=== PATIENT | female | born 1960 | race Caucasian/White ===

== ENCOUNTER → 2017-08-24 13:22 | Outpatient (CLI) | payer OTHER, MEDICARE, SELFPAY ==
[2017-08-24 13:56] LABS: Absolute Lymphocyte Count 3.79 X10^3/ul (0.83-4.51); Absolute Neutrophil Count 2.9 X10^3/uL (2.0-7.7); Basophil# 0.03 X10^3/uL; Basophil% 0.4 % (0-1); Eosinophil# 0.39 X10^3/uL; Eosinophils% 4.9 % (0-5); Hemoglobin 10.7 g/dl (12.0-15.0); Lymphocyte # 3.79 X10^3/ul (4.0); Lymphocyte % 47.8 % (19-41); Mean Corp Hgb Conc 32.4 g/gl (32-36); Mean Corpuscular Hgb 32.8 pg (27.0-32.0); Mean Corpuscular Volume 101.2 fL (81-99); Mean Platelet Vol. 9.9 fl (6.2-12.0); Monocyte# 0.82 X10^3/uL; Monocyte% 10.3 % (0-10); Neutrophil # 2.89 X10^3/uL (2.7-7.7); Neutrophil % 36.5 % (47-70); Platelet Count 284 K/mm3 (150-450); RBC Distribution Width CV 12.9 % (11.6-14.6); RBC Distribution Width SD 47.5 fl (35.1-43.9); Red Blood Count 3.26 M/mm3 (4.2-5.4); White Blood Count 7.9 K/mm3 (4.4-11.0)
[2017-08-24 13:57] LABS: POSITIVE COUNT NO; POSITIVE DIFFERENTIAL NO; POSITIVE MORPHOLOGY NO
[2017-08-24 14:26] LABS: ALB/GLOB Ratio 0.8 RATIO (0.9-2.4); AST(SGOT) 22 U/L (15-37); Alanine Aminotransfer ALT/SGPT 21 U/L (13-56); Albumin, Serum 3.4 g/dL (3.2-5.0); Alkaline Phosphatase 47 U/L (45-117); Anion Gap 9 (5-15); BUN 23 mg/dL (7-18); BUN/Creat Ratio 17.4 RATIO (10-20); Calcium,Total 9.6 mg/dL (8.5-10.1); Chloride 103 mmol/L (98-107); Creatinine, Serum 1.32 mg/dL (0.55-1.02); EST Glomerular Filtration Rate 44 mL/min (>60); Est Glom Filt Rate - Afr Amer 53 mL/min (>60); Globulin 4.1 g/dL (2.2-4.2); Glucose 94 mg/dL (70-110); Phosphorus 3.1 mg/dL (2.5-4.9); Potassium 3.5 mmol/L (3.5-5.1); Protein, Total 7.5 g/dL (6.4-8.2); Sodium Level 140 mmol/L (136-145)
[2017-08-28 07:53] LABS: Tacrolimus (FK506) 8.4 ng/mL (2.0-20.0)
== END ==
DX: D89.9 Disorder involving the immune mechanism, unspecified (principal); Z94.0 Kidney transplant status
CPT/HCPCS: 36591; 80053; 80197; 84100; 85025; 86140; A4216

== ENCOUNTER → 2017-10-16 12:54 | Outpatient (CLI) | payer OTHER, MEDICARE, SELFPAY ==
[2017-10-16 13:31] LABS: Erythrocyte Sedimentation Rate 30 mm/hr (0-30)
[2017-10-16 13:32] LABS: Absolute Lymphocyte Count 4.44 X10^3/ul (0.83-4.51); Absolute Neutrophil Count 3.4 X10^3/uL (2.0-7.7); Basophil# 0.08 X10^3/uL; Basophil% 0.9 % (0-1); Eosinophil# 0.42 X10^3/uL; Eosinophils% 4.6 % (0-5); Hematocrit 32.9 % (37-47); Hemoglobin 10.8 g/dl (12.0-15.0); Lymphocyte # 4.44 X10^3/ul (4.0); Lymphocyte % 48.1 % (19-41); Mean Corp Hgb Conc 32.8 g/gl (32-36); Mean Corpuscular Hgb 33.3 pg (27.0-32.0); Mean Corpuscular Volume 101.5 fL (81-99); Mean Platelet Vol. 10.2 fl (6.2-12.0); Monocyte# 0.93 X10^3/uL; Monocyte% 10.1 % (0-10); Neutrophil # 3.35 X10^3/uL (2.7-7.7); Neutrophil % 36.2 % (47-70); Platelet Count 302 K/mm3 (150-450); RBC Distribution Width CV 12.5 % (11.6-14.6); RBC Distribution Width SD 44.7 fl (35.1-43.9); Red Blood Count 3.24 M/mm3 (4.2-5.4); White Blood Count 9.2 K/mm3 (4.4-11.0)
[2017-10-16 13:34] LABS: POSITIVE COUNT NO; POSITIVE DIFFERENTIAL NO; POSITIVE MORPHOLOGY NO
[2017-10-16 13:53] LABS: ALB/GLOB Ratio 0.8 RATIO (0.9-2.4); AST(SGOT) 22 U/L (15-37); Alanine Aminotransfer ALT/SGPT 19 U/L (13-56); Albumin, Serum 3.2 g/dL (3.2-5.0); Alkaline Phosphatase 50 U/L (45-117); Anion Gap 9 (5-15); BUN 19 mg/dL (7-18); BUN/Creat Ratio 15.8 RATIO (10-20); CRP < 2.90 mg/L (0.0-3.0); Calcium,Total 8.8 mg/dL (8.5-10.1); Chloride 103 mmol/L (98-107); EST Glomerular Filtration Rate 49 mL/min (>60); Est Glom Filt Rate - Afr Amer 59 mL/min (>60); Globulin 4.2 g/dL (2.2-4.2); Glucose 109 mg/dL (74-106); Phosphorus 2.3 mg/dL (2.5-4.9); Potassium 3.3 mmol/L (3.5-5.1); Protein, Total 7.4 g/dL (6.4-8.2); Sodium Level 141 mmol/L (136-145)
== END ==
DX: Z94.0 Kidney transplant status (principal); D89.9 Disorder involving the immune mechanism, unspecified
CPT/HCPCS: 36591; 80053; 80197; 84100; 85025; 85652; 86140; A4216

== ENCOUNTER → 2017-11-27 15:53 | Outpatient (CLI) | payer OTHER, MEDICARE, SELFPAY ==
[2017-11-27 16:19] LABS: Absolute Lymphocyte Count 3.91 X10^3/ul (0.83-4.51); Absolute Neutrophil Count 3.4 X10^3/uL (2.0-7.7); Basophil# 0.03 X10^3/uL; Basophil% 0.4 % (0-1); Eosinophil# 0.35 X10^3/uL; Eosinophils% 4.2 % (0-5); Hematocrit 32.3 % (37-47); Hemoglobin 10.7 g/dl (12.0-15.0); Lymphocyte # 3.91 X10^3/ul (4.0); Lymphocyte % 46.7 % (19-41); Mean Corp Hgb Conc 33.1 g/gl (32-36); Mean Corpuscular Hgb 32.9 pg (27.0-32.0); Mean Corpuscular Volume 99.4 fL (81-99); Mean Platelet Vol. 9.9 fl (6.2-12.0); Monocyte# 0.63 X10^3/uL; Monocyte% 7.5 % (0-10); Neutrophil # 3.44 X10^3/uL (2.7-7.7); Platelet Count 280 K/mm3 (150-450); RBC Distribution Width CV 12.9 % (11.6-14.6); RBC Distribution Width SD 47.1 fl (35.1-43.9); Red Blood Count 3.25 M/mm3 (4.2-5.4); White Blood Count 8.4 K/mm3 (4.4-11.0)
[2017-11-27 16:20] LABS: POSITIVE COUNT NO; POSITIVE DIFFERENTIAL NO; POSITIVE MORPHOLOGY NO
[2017-11-27 16:23] LABS: Erythrocyte Sedimentation Rate 25 mm/hr (0-30)
[2017-11-27 16:27] LABS: ALB/GLOB Ratio 0.8 RATIO (0.9-2.4); AST(SGOT) 21 U/L (15-37); Alanine Aminotransfer ALT/SGPT 16 U/L (13-56); Albumin, Serum 3.3 g/dL (3.2-5.0); Alkaline Phosphatase 42 U/L (45-117); Anion Gap 8 (5-15); BUN 22 mg/dL (7-18); BUN/Creat Ratio 16.8 RATIO (10-20); CRP < 2.90 mg/L (0.0-3.0); Chloride 106 mmol/L (98-107); Creatinine, Serum 1.31 mg/dL (0.55-1.02); EST Glomerular Filtration Rate 44 mL/min (>60); Est Glom Filt Rate - Afr Amer 53 mL/min (>60); Globulin 4.3 g/dL (2.2-4.2); Glucose 97 mg/dL (74-106); Potassium 3.8 mmol/L (3.5-5.1); Protein, Total 7.6 g/dL (6.4-8.2); Sodium Level 142 mmol/L (136-145)
== END ==
DX: M06.9 Rheumatoid arthritis, unspecified (principal); Z94.0 Kidney transplant status; D89.9 Disorder involving the immune mechanism, unspecified
CPT/HCPCS: 36591; 80053; 85025; 85652; 86140; A4216

== ENCOUNTER → 2018-01-16 13:48 | Outpatient (CLI) | payer OTHER, MEDICARE, SELFPAY ==
[2018-01-16 14:18] LABS: Absolute Lymphocyte Count 3.92 X10^3/ul (0.83-4.51); Basophil# 0.03 X10^3/uL; Basophil% 0.4 % (0-1); Eosinophil# 0.37 X10^3/uL; Eosinophils% 4.5 % (0-5); Hemoglobin 10.4 g/dl (12.0-15.0); Lymphocyte # 3.92 X10^3/ul (4.0); Lymphocyte % 47.9 % (19-41); Mean Corp Hgb Conc 32.5 g/gl (32-36); Mean Corpuscular Hgb 32.5 pg (27.0-32.0); Mean Platelet Vol. 10.1 fl (6.2-12.0); Monocyte# 0.83 X10^3/uL; Monocyte% 10.1 % (0-10); Neutrophil # 3.04 X10^3/uL (2.7-7.7); Neutrophil % 37.1 % (47-70); Platelet Count 254 K/mm3 (150-450); RBC Distribution Width CV 12.8 % (11.6-14.6); RBC Distribution Width SD 47.1 fl (35.1-43.9); White Blood Count 8.2 K/mm3 (4.4-11.0)
[2018-01-16 14:25] LABS: POSITIVE COUNT NO; POSITIVE DIFFERENTIAL NO; POSITIVE MORPHOLOGY NO
[2018-01-16 14:28] LABS: Erythrocyte Sedimentation Rate 30 mm/hr (0-30)
[2018-01-16 14:51] LABS: ALB/GLOB Ratio 0.8 RATIO (0.9-2.4); AST(SGOT) 22 U/L (15-37); Alanine Aminotransfer ALT/SGPT 18 U/L (13-56); Albumin, Serum 3.3 g/dL (3.2-5.0); Alkaline Phosphatase 45 U/L (45-117); Anion Gap 6 (5-15); BUN 22 mg/dL (7-18); BUN/Creat Ratio 17.3 RATIO (10-20); CRP 3.28 mg/L (0.0-3.0); Calcium,Total 9.2 mg/dL (8.5-10.1); Chloride 103 mmol/L (98-107); Creatinine, Serum 1.27 mg/dL (0.55-1.02); EST Glomerular Filtration Rate 46 mL/min (>60); Est Glom Filt Rate - Afr Amer 55 mL/min (>60); Globulin 4.2 g/dL (2.2-4.2); Glucose 87 mg/dL (74-106); Phosphorus 3.1 mg/dL (2.5-4.9); Potassium 3.8 mmol/L (3.5-5.1); Protein, Total 7.5 g/dL (6.4-8.2); Sodium Level 140 mmol/L (136-145)
[2018-01-18 16:26] LABS: Tacrolimus (FK506) 5.8 ng/mL (2.0-20.0)
== END ==
DX: Z94.0 Kidney transplant status (principal); D89.9 Disorder involving the immune mechanism, unspecified; M06.9 Rheumatoid arthritis, unspecified
CPT/HCPCS: 36591; 80053; 80197; 84100; 85025; 85652; 86140; A4216

== ENCOUNTER → 2018-03-12 14:41 | Outpatient (CLI) | payer OTHER, MEDICARE, SELFPAY ==
[2018-03-12 16:13] LABS: Thyroid Stim Hormone (TSH) 3.49 uIU/mL (0.358-3.74)
[2018-03-12 16:29] LABS: Absolute Neutrophil Count 2.9 X10^3/uL (2.0-7.7); Basophil# 0.04 X10^3/uL; Basophil% 0.4 % (0-1); Differential Indicated SCAN CRITERIA MET; Eosinophil# 0.57 X10^3/uL; Eosinophils% 6.3 % (0-5); Hematocrit 32.4 % (37-47); Hemoglobin 10.6 g/dl (12.0-15.0); Lymphocyte % 50.1 % (19-41); Mean Corp Hgb Conc 32.7 g/gl (32-36); Mean Corpuscular Hgb 32.6 pg (27.0-32.0); Mean Corpuscular Volume 99.7 fL (81-99); Monocyte# 0.98 X10^3/uL; Monocyte% 10.9 % (0-10); Neutrophil # 2.89 X10^3/uL (2.7-7.7); Neutrophil % 32.2 % (47-70); POSITIVE COUNT NO; POSITIVE DIFFERENTIAL NO; POSITIVE MORPHOLOGY YES; Platelet Count 249 K/mm3 (150-450); RBC Distribution Width CV 12.8 % (11.6-14.6); RBC Distribution Width SD 46.8 fl (35.1-43.9); Red Blood Count 3.25 M/mm3 (4.2-5.4)
[2018-03-12 16:31] LABS: ALB/GLOB Ratio 0.7 RATIO (0.9-2.4); AST(SGOT) 20 U/L (15-37); Alanine Aminotransfer ALT/SGPT 23 U/L (13-56); Albumin, Serum 3.3 g/dL (3.2-5.0); Alkaline Phosphatase 59 U/L (45-117); Anion Gap 6 (5-15); Anisocytosis RARE; BUN 18 mg/dL (7-18); BUN/Creat Ratio 14.2 RATIO (10-20); CRP < 2.90 mg/L (0.0-3.0); Calcium,Total 9.1 mg/dL (8.5-10.1); Chloride 105 mmol/L (98-107); Creatinine, Serum 1.27 mg/dL (0.55-1.02); EST Glomerular Filtration Rate 46 mL/min (>60); Est Glom Filt Rate - Afr Amer 55 mL/min (>60); Globulin 4.5 g/dL (2.2-4.2); Glucose 89 mg/dL (74-106); Macrocytosis RARE; Platelet Estimate ADEQUATE (ADEQ); Potassium 3.7 mmol/L (3.5-5.1); Protein, Total 7.8 g/dL (6.4-8.2); Sodium Level 141 mmol/L (136-145)
[2018-03-12 16:33] LABS: Erythrocyte Sedimentation Rate 30 mm/hr (0-30)
== END ==
PROVIDERS: Family Provider Family Medicine; PCP Family Medicine
DX: E03.9 Hypothyroidism, unspecified (principal); M06.9 Rheumatoid arthritis, unspecified
CPT/HCPCS: 36591; 80053; 84443; 85025; 85652; 86140; A4216

== ENCOUNTER → 2018-04-25 15:17 | Outpatient (CLI) | payer OTHER, MEDICARE, SELFPAY ==
[2018-04-25 15:57] LABS: Absolute Lymphocyte Count 3.39 X10^3/ul (0.83-4.51); Absolute Neutrophil Count 3.2 X10^3/uL (2.0-7.7); Basophil# 0.04 X10^3/uL; Basophil% 0.5 % (0-1); Eosinophil# 0.38 X10^3/uL; Eosinophils% 4.7 % (0-5); Hematocrit 32.1 % (37-47); Hemoglobin 10.6 g/dl (12.0-15.0); Lymphocyte # 3.39 X10^3/ul (4.0); Lymphocyte % 41.7 % (19-41); Mean Corpuscular Hgb 33.1 pg (27.0-32.0); Mean Corpuscular Volume 100.3 fL (81-99); Mean Platelet Vol. 10.3 fl (6.2-12.0); Monocyte% 13.5 % (0-10); Neutrophil % 39.5 % (47-70); Platelet Count 252 K/mm3 (150-450); RBC Distribution Width CV 12.7 % (11.6-14.6); RBC Distribution Width SD 44.7 fl (35.1-43.9); White Blood Count 8.1 K/mm3 (4.4-11.0)
[2018-04-25 16:01] LABS: POSITIVE COUNT NO; POSITIVE DIFFERENTIAL NO; POSITIVE MORPHOLOGY NO
[2018-04-25 16:14] LABS: Erythrocyte Sedimentation Rate 37 mm/hr (0-30)
[2018-04-25 16:28] LABS: Protein, Urine (Random) 13.2 mg/dL (<11.9)
[2018-04-25 16:31] LABS: ALB/GLOB Ratio 0.8 RATIO (0.9-2.4); AST(SGOT) 31 U/L (15-37); Alanine Aminotransfer ALT/SGPT 26 U/L (13-56); Albumin, Serum 3.2 g/dL (3.2-5.0); Alkaline Phosphatase 68 U/L (45-117); Anion Gap 8 (5-15); BUN 21 mg/dL (7-18); BUN/Creat Ratio 16.3 RATIO (10-20); CRP 4.71 mg/L (0.0-3.0); Chloride 103 mmol/L (98-107); Creatinine, Serum 1.29 mg/dL (0.55-1.02); EST Glomerular Filtration Rate 45 mL/min (>60); Est Glom Filt Rate - Afr Amer 54 mL/min (>60); Globulin 4.2 g/dL (2.2-4.2); Glucose 80 mg/dL (74-106); Phosphorus 3.4 mg/dL (2.5-4.9); Potassium 3.9 mmol/L (3.5-5.1); Protein, Total 7.4 g/dL (6.4-8.2); Sodium Level 140 mmol/L (136-145)
[2018-04-30 13:15] LABS: Tacrolimus (FK506) 5.8 ng/mL (2.0-20.0)
== END ==
PROVIDERS: Family Provider Family Medicine; PCP Family Medicine; Referring Provider Family Medicine; Visit Provider Family Medicine
DX: Z94.0 Kidney transplant status (principal)
CPT/HCPCS: 36591; 80053; 80197; 82570; 84100; 84156; 85025; 85652; 86140; A4216

== ENCOUNTER → 2018-06-12 16:20 | Outpatient (CLI) | payer OTHER, MEDICARE, SELFPAY ==
[2018-06-12 17:06] LABS: Absolute Lymphocyte Count 3.83 X10^3/ul (0.83-4.51); Absolute Neutrophil Count 2.5 X10^3/uL (2.0-7.7); Basophil# 0.04 X10^3/uL; Basophil% 0.5 % (0-1); Eosinophils% 5.2 % (0-5); Hematocrit 32.6 % (37-47); Hemoglobin 10.7 g/dl (12.0-15.0); Lymphocyte # 3.83 X10^3/ul (4.0); Lymphocyte % 49.9 % (19-41); Mean Corp Hgb Conc 32.8 g/gl (32-36); Mean Corpuscular Hgb 32.7 pg (27.0-32.0); Mean Corpuscular Volume 99.7 fL (81-99); Mean Platelet Vol. 10.5 fl (6.2-12.0); Monocyte# 0.86 X10^3/uL; Monocyte% 11.2 % (0-10); Neutrophil # 2.52 X10^3/uL (2.7-7.7); Neutrophil % 32.9 % (47-70); Platelet Count 109 K/mm3 (150-450); RBC Distribution Width CV 12.8 % (11.6-14.6); RBC Distribution Width SD 45.4 fl (35.1-43.9); Red Blood Count 3.27 M/mm3 (4.2-5.4); White Blood Count 7.7 K/mm3 (4.4-11.0)
[2018-06-12 17:07] LABS: POSITIVE COUNT NO; POSITIVE DIFFERENTIAL NO; POSITIVE MORPHOLOGY NO
[2018-06-12 17:28] LABS: Erythrocyte Sedimentation Rate 34 mm/hr (0-30)
[2018-06-12 17:33] LABS: ALB/GLOB Ratio 0.8 RATIO (0.9-2.4); AST(SGOT) 22 U/L (15-37); Alanine Aminotransfer ALT/SGPT 21 U/L (13-56); Albumin, Serum 3.2 g/dL (3.2-5.0); Alkaline Phosphatase 48 U/L (45-117); Anion Gap 8 (5-15); BUN 21 mg/dL (7-18); BUN/Creat Ratio 16.8 RATIO (10-20); CRP 3.52 mg/L (0.0-3.0); Chloride 105 mmol/L (98-107); Creatinine, Serum 1.25 mg/dL (0.55-1.02); EST Glomerular Filtration Rate 46 mL/min (>60); Est Glom Filt Rate - Afr Amer 56 mL/min (>60); Globulin 4.2 g/dL (2.2-4.2); Glucose 99 mg/dL (74-106); Potassium 3.6 mmol/L (3.5-5.1); Protein, Total 7.4 g/dL (6.4-8.2); Sodium Level 142 mmol/L (136-145)
== END ==
PROVIDERS: Family Provider Family Medicine; PCP Family Medicine; Visit Provider Internal Medicine
DX: M06.9 Rheumatoid arthritis, unspecified (principal)
CPT/HCPCS: 36591; 80053; 85025; 85652; 86140; A4216

== ENCOUNTER → 2018-07-31 13:53 | Outpatient (CLI) | payer OTHER, MEDICARE, SELFPAY ==
[2018-07-31 14:33] LABS: Erythrocyte Sedimentation Rate 48 mm/hr (0-30)
[2018-07-31 14:34] LABS: ALB/GLOB Ratio 0.6 RATIO (0.9-2.4); AST(SGOT) 24 U/L (15-37); Alanine Aminotransfer ALT/SGPT 23 U/L (13-56); Albumin, Serum 2.9 g/dL (3.2-5.0); Alkaline Phosphatase 79 U/L (45-117); Anion Gap 7 (5-15); BUN 23 mg/dL (7-18); BUN/Creat Ratio 16.8 RATIO (10-20); Calcium,Total 10.1 mg/dL (8.5-10.1); Chloride 106 mmol/L (98-107); Creatinine, Serum 1.37 mg/dL (0.55-1.02); EST Glomerular Filtration Rate 42 mL/min (>60); Est Glom Filt Rate - Afr Amer 51 mL/min (>60); Globulin 4.9 g/dL (2.2-4.2); Glucose 82 mg/dL (74-106); Potassium 4.1 mmol/L (3.5-5.1); Protein, Total 7.8 g/dL (6.4-8.2); Sodium Level 140 mmol/L (136-145)
[2018-07-31 14:37] LABS: Absolute Lymphocyte Count 3.15 X10^3/ul (0.83-4.51); Absolute Neutrophil Count 3.1 X10^3/uL (2.0-7.7); Basophil# 0.04 X10^3/uL; Basophil% 0.5 % (0-1); Eosinophil# 0.39 X10^3/uL; Eosinophils% 5.2 % (0-5); Hematocrit 32.2 % (37-47); Hemoglobin 10.5 g/dl (12.0-15.0); Lymphocyte # 3.15 X10^3/ul (4.0); Lymphocyte % 41.8 % (19-41); Mean Corp Hgb Conc 32.6 g/gl (32-36); Mean Corpuscular Volume 98.2 fL (81-99); Mean Platelet Vol. 9.6 fl (6.2-12.0); Monocyte# 0.86 X10^3/uL; Monocyte% 11.4 % (0-10); Neutrophil # 3.08 X10^3/uL (2.7-7.7); Neutrophil % 40.8 % (47-70); POSITIVE COUNT NO; POSITIVE DIFFERENTIAL NO; POSITIVE MORPHOLOGY NO; Platelet Count 223 K/mm3 (150-450); RBC Distribution Width CV 12.9 % (11.6-14.6); RBC Distribution Width SD 46.6 fl (35.1-43.9); Red Blood Count 3.28 M/mm3 (4.2-5.4); White Blood Count 7.5 K/mm3 (4.4-11.0)
[2018-08-06 09:47] LABS: Tacrolimus (FK506) 7.8 ng/mL (2.0-20.0)
== END ==
PROVIDERS: Family Provider Family Medicine; PCP Family Medicine
DX: M06.9 Rheumatoid arthritis, unspecified (principal); Z94.0 Kidney transplant status; D89.9 Disorder involving the immune mechanism, unspecified
CPT/HCPCS: 36591; 80053; 80197; 84100; 85025; 85652; 86140; A4216

== ENCOUNTER → 2018-09-11 15:20 | Outpatient (CLI) | payer OTHER, MEDICARE, SELFPAY ==
[2018-09-11 16:11] LABS: ALB/GLOB Ratio 0.6 RATIO (0.9-2.4); AST(SGOT) 17 U/L (15-37); Alanine Aminotransfer ALT/SGPT 13 U/L (13-56); Albumin, Serum 2.7 g/dL (3.2-5.0); Alkaline Phosphatase 62 U/L (45-117); BUN 22 mg/dL (7-18); BUN/Creat Ratio 12.8 RATIO (10-20); Calcium,Total 9.7 mg/dL (8.5-10.1); Creatinine, Serum 1.72 mg/dL (0.55-1.02); EST Glomerular Filtration Rate 32 mL/min (>60); Est Glom Filt Rate - Afr Amer 39 mL/min (>60); Globulin 4.8 g/dL (2.2-4.2); Glucose 116 mg/dL (74-106); Protein, Total 7.5 g/dL (6.4-8.2)
[2018-09-11 16:12] LABS: Anion Gap 10 (5-15); CRP 9.67 mg/L (0.0-3.0); Chloride 103 mmol/L (98-107); Potassium 3.4 mmol/L (3.5-5.1); Sodium Level 139 mmol/L (136-145)
[2018-09-11 16:13] LABS: Prothrombin Time (Protime)PT. 13.6 SECONDS (11.7-14.9)
[2018-09-11 16:14] LABS: Partial Thromboplast Time 34.4 Seconds (24.1-36.2)
[2018-09-11 16:17] LABS: Erythrocyte Sedimentation Rate 21 mm/hr (0-30)
[2018-09-11 16:19] LABS: Absolute Lymphocyte Count 3.45 X10^3/ul (0.83-4.51); Absolute Neutrophil Count 4.9 X10^3/uL (2.0-7.7); Basophil# 0.06 X10^3/uL; Basophil% 0.6 % (0-1); Eosinophil# 0.36 X10^3/uL; Eosinophils% 3.7 % (0-5); Hematocrit 28.5 % (37-47); Hemoglobin 9.1 g/dl (12.0-15.0); Lymphocyte # 3.45 X10^3/ul (4.0); Lymphocyte % 35.9 % (19-41); Mean Corp Hgb Conc 31.9 g/gl (32-36); Mean Corpuscular Hgb 32.2 pg (27.0-32.0); Mean Corpuscular Volume 100.7 fL (81-99); Mean Platelet Vol. 10.4 fl (6.2-12.0); Monocyte# 0.84 X10^3/uL; Monocyte% 8.7 % (0-10); Neutrophil # 4.89 X10^3/uL (2.7-7.7); Neutrophil % 50.9 % (47-70); Platelet Count 115 K/mm3 (150-450); RBC Distribution Width CV 13.6 % (11.6-14.6); RBC Distribution Width SD 49.9 fl (35.1-43.9); Red Blood Count 2.83 M/mm3 (4.2-5.4); White Blood Count 9.6 K/mm3 (4.4-11.0)
[2018-09-11 16:20] LABS: POSITIVE COUNT NO; POSITIVE DIFFERENTIAL NO; POSITIVE MORPHOLOGY NO
[2018-09-11 23:30] LABS: Xtra Tube EP Lab EXTRA TUBE
== END ==
PROVIDERS: Family Provider Family Medicine; PCP Family Medicine; Referring Provider Internal Medicine
DX: M08.00 Unspecified juvenile rheumatoid arthritis of unspecified site (principal); Z79.899 Other long term (current) drug therapy; M81.0 Age-related osteoporosis without current pathological fracture; T14.8XXA Other injury of unspecified body region, initial encounter; I10 Essential (primary) hypertension; C50.211 Malignant neoplasm of upper-inner quadrant of right female breast; Z94.0 Kidney transplant status; M06.9 Rheumatoid arthritis, unspecified
CPT/HCPCS: 36591; 80053; 82248; 85025; 85610; 85652; 85730; 86140; A4216